=== PATIENT | female | born 1995 | race Caucasian/White ===

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

== ENCOUNTER 2017-01-14 22:31 | Emergency (ER) | payer OTHER ==
--- OUTSIDE RECORDS SUMMARY | 2017-01-14 22:47 | XMS REPORT ---
:1995 External Reference #:[id number] Author Organization [facility] Address [address] [place] [address] Phone [phone] Care Team Providers Name Role Phone DEMARIO Subramanian Care Team Information Glove Turner Unavailable Payers Type Date Identification Numbers Payment Provider Subscriber Commercial Effective: Policy Number: [id number] [place]([facility] Dejah Caal 2013 [facility]) Naun Expires: 2014 Group Name: [employer] [address] PayID: [id number] [place] [address] Commercial Effective: Policy Number: Will Caal 2012 [id number] Medicaid Naun Expires: 2016 PayID: [id number] [address] [place] [address] Commercial Effective: [facility] Number[facility] [id number] Naun Expires: 2016 PayID: [id number] [address] [place] [address] Commercial Effective: Policy Number: Will Caal 2016 [id number] Medicaid Naun PayID: [id number] [address] [place] [address] Problems Description No Information Social History Type Date Description Comments Lives With Boyfriend Diet Healthy, Well Balanced likes fruits, needs to eat more vegetables Smoke-Free home is not smoke free Pets 2 dogs Pets 2 cats Cigarette Use Light tobacco smoker (10 or fewer cigarettes/day) ETOH Use Denies alcohol use Recreational Drug Use Denies Drug Use Smoking Patient is a current smoker, smokes every day Daily Caffeine Does Not Consume Caffeine Currently Active Patient is currently sexually active Allergies, Adverse Reactions, Alerts Date Description Reaction Status Severity Comments 04/18/2008 NKDA active Medications Medication Date Status Form Strength Qnty SIG Indications Ordering Provider Ortho-Novum 05/25 Active Tablets 1-35mg-mc 168ta 1 by mouth N92.0 wnti (28) /2016 g bs daily, can Corine Bravo, skip placebo CLINICAL OPERATIONS CONSULTANT-C week and start new pill pack Omeprazole 03/[address] 20mg 30cap 1 by mouth K29.00 s every day Corine Bravo, CLINICAL OPERATIONS CONSULTANT-C Cefdinir 06/17 Hx Capsules 300mg 20cap 1 by mouth J02.0 s twice a day Corine Bravo, - for 10 days CLINICAL OPERATIONS CONSULTANT-C 01/02 04/07 Hx Tablets 27-1mg 90tab 1 by mouth Z33.1 s every day Corine Bravo, - CLINICAL OPERATIONS CONSULTANT-C 05/25 Cipro 03/10 Hx Tablets 250mg 10tab 1 pill by N10 s mouth twice a Corine Bravo, - day for 5 CLINICAL OPERATIONS CONSULTANT-C 03/20 days urine infection Bactrim DS 02/08 Hx Tablets 800-160mg 28tab 1 by mouth Yris s twice a day ravindra Zuñiga, - 14 days CLINICAL OPERATIONS CONSULTANT-C 04/07 Sulfamethoxazo 04/20 Hx Tablets 800-160mg 20tab 1 by mouth N76.4 [facility]Trimethop[facility] twice a day antoine Marr DS - for CLINICAL OPERATIONS CONSULTANT-C 04/30 infection, take for 10 days Meloxicam 03/17 Hx Tablets 7.5mg 30tab take one M54.5 s tablet by Corine Bravo, - mouth twice CLINICAL OPERATIONS CONSULTANT-C 11/11 daily for pain Mirtazapine 03/17 Hx Tablets 15mg 30tab take one F41.9 s tablet by Corine Bravo, - mouth every CLINICAL OPERATIONS CONSULTANT-C 04/13 night at bedtime for depression and anxiety, replaced Nortriptyline Nortriptyline 02/24 Hx Capsules 25mg 30cap 1 by mouth F41.9 Shawnti HCL s every night Corine Bravo, - at bedtime CLINICAL OPERATIONS CONSULTANT-C 04/13 for anxiety /2015 and depression Prozac 02/17 Hx Capsules 20mg 30cap 1 by mouth F41.9 Shawnti /2015 s every morning Corine Bravo, - CLINICAL OPERATIONS CONSULTANT-C 02/24 Doxycycline 02/17 Hx Tablets 100mg 20tab 1 by mouth N76.4 [place] Hyclate s twice a day Corine Bravo, - for 10 days CLINICAL OPERATIONS CONSULTANT-C 02/27 Bactrim DS 02/02 Hx Tablets 800-160mg 20tab 1 by mouth N76.4 Shawnti /2014 s twice a day Corine Bravo, - for infection CLINICAL OPERATIONS CONSULTANT-C 02/12 Hydrocodone-Ac 02/02 Hx Tablets 5-325mg 10tab 1 by mouth N76.4 Shawn[place] etaminophen s four times a R. Lawrence, - day as needed CLINICAL OPERATIONS CONSULTANT-C 02/12 severe pain /2014 Hydrocodone-Ac 12/19 Hx Tablets 5-325mg 14tab 1 by mouth L02.214 [place] etaminophen s four times a R. Lawrence, - day as needed CLINICAL OPERATIONS CONSULTANT-C 02/02 severe pain /2014 Etodolac 12/19 Hx Capsules 300mg 30cap 1 by mouth L02.214 Shawnti /2014 s q6hr for pain R. Lawrence, - CLINICAL OPERATIONS CONSULTANT-C 03/17 Ortho-Novum 12/11 Hx Tablets 1-35mg-mc 168ta 1 po daily N92.0 [facility] ([facility] /2014 g bs for heavy R. Storm, - menses CLINICAL OPERATIONS CONSULTANT-C 04/07 Hydrocodone-Ac 09/30 Hx Tablets 5-325mg 7seve 1 by mouth q 590.80 Yris etaminophen n 6 hours as Adri, - needed for CLINICAL OPERATIONS CONSULTANT-C 12/19 severe pain /2014 Tri-Sprintec 12/30 Hx Tablets 0.18/0.21 84tab 1 by mouth N92.0 nti 5/0.25 s every day Corine Bravo, - mg-35 mcg CLINICAL OPERATIONS CONSULTANT-C 12/11 Polymyxin B 01/20 Hx Solution 50939-7.1 10ml 1gtt in right 379.90 Yris Sulfate/Trimet Unit/ML-% eyes every 4 chey Zuñiga Sulfate - hours while CLINICAL OPERATIONS CONSULTANT-C 09/24 awake no more /2014 than 6 doses/day, replaces script that says both eyes Camrese Lo 12/06 Hx Tablets 0.1-0.02& 30tab 1 po daily V25.09 Shawnti amp;0.01m s Corine Bravo, - g CLINICAL OPERATIONS CONSULTANT-C 02/11 Celexa 12/06 Hx Tablets 10mg 30tab 1 by mouth 308.3 wnti s every day Corine Bravo, - CLINICAL OPERATIONS CONSULTANT-C 12/06 Citalopram 12/06 Hx Tablets 10mg 90tab 1 by mouth 308.3 Shawnti Hydrobromide s daily for Corine Bravo, - anxiety CLINICAL OPERATIONS CONSULTANT-C 09/24 No Active 03/27 Hx Shawnti Medications Corine Bravo, - CLINICAL OPERATIONS CONSULTANT-C 03/27 Jolessa 03/27 Hx Tablets 0.15-0.03 28tab 1 by mouth 626.2 mg s every day Corine Bravo, - CLINICAL OPERATIONS CONSULTANT-C 12/06 Ciprodex 09/19 Hx Suspension 0.3-0.1% 7.500 4 ggts in ear 380.10 ml bid x 7 days Elle Kee M.D. 12/18 Amoxicillin 09/19 Hx Capsules 500mg 30cap 1 tid x 10 380.10 s days Elle Kee M.D. 10/19 Immunizations CPT Code Status Date Vaccine Lot # [id number] Given 11/12/2015 Menactra VFC (Meningicoccal Conjugate Vaccine) [id number] 44580 Given 11/12/2015 Influenza Virus Vaccine, Quadrivalent, 3 Yr > [id number] Quad, Preserv Free 89087 Given 11/01/2013 Varicella (Chicken Pox) Vacc [facility] [id number] 65898 Given 11/01/2013 Hepatitis A(Ped) 2 Dose Schedule [id number] 72165 Given 10/01/2012 HPV Vaccine, Gardasil - [facility] [id number] 32512 Given 05/25/2012 HPV Vaccine, Gardasil - [facility] [id number] 60276 Given 03/27/2012 Menactra VF (Meningicoccal Conjugate Vaccine) [id number] 93953 Given 03/27/2012 Tdap [facility] (Adacel) [id number] 10893 Given 03/27/2012 HPV Vaccine, Gardasil - [facility] [id number] 50756 Given 03/27/2012 Hepatitis A(Ped) 2 Dose Schedule [id number] 35941 Given 01/14/2009 Tdap [facility] (Adacel) [id number] 54451 Given 10/10/2002 MMR (Measles,Mumps,Rubella) 78506 Given 10/10/2002 DTaP (Daptacel) 94432 Given 05/07/2001 Varicella (Chicken Pox) Vaccine 94640 Given 11/26/1998 Hib (Hemophilus Influenza B) (Acthib) 07697 Given 11/26/1998 DTaP (Daptacel) 43941 Given 11/26/1998 MMR (Measles,Mumps,Rubella) 54424 Given 11/26/1998 Inactivated Polio Vaccine, Injectable (Ipol) 94434 Given 11/26/1998 DPT & Hib Vaccine, Combined 75859 Given 11/01/1998 Comvax - Hep B Pediatric/Hib 44626 Given 04/03/1998 DTaP (Daptacel) 51203 Given 1997 Inactivated Polio Vaccine, Injectable (Ipol) 09677 Given 1997 DTaP (Daptacel) 11074 Given 1997 Hib (Hemophilus Influenza B) (Acthib) 32348 Given 1997 Comvax - Hep B Pediatric/Hib 31379 Given 1997 Inactivated Polio Vaccine, Injectable (Ipol) 30906 Given 1997 DTaP (Daptacel) 89458 Given 1997 Hep B Vaccine, Ped/Adol Dose 3 Dose (Engerix or Recombivax) Vital Signs Date Vital Result Comment 01/02/2017 Weight 147.00 lb Weight in kg's 66.679 BP Systolic 120 mmHg BP Diastolic 72 mmHg Heart Rate 90 /min Body Temperature 98.0 F Weight Percentile 78th O2 % BldC Oximetry 97 % 10/04/2016 Weight 155.00 lb Weight in kg's 70.308 BP Systolic 110 mmHg BP Diastolic 70 mmHg Heart Rate 86 /min Body Temperature 98.7 F Respiratory Rate 26 /min Weight Percentile <3rd O2 % BldC Oximetry 98 % 06/17/2016 Weight 168.00 lb Weight in kg's 76.205 BP Systolic 102 mmHg BP Diastolic 68 mmHg Heart Rate 96 /min Body Temperature 98.7 F Weight Percentile 92nd 05/26/2016 Weight 162.00 lb Weight in kg's 73.483 BP Systolic 110 mmHg BP Diastolic 70 mmHg Heart Rate 92 /min Body Temperature 97.5 F Respiratory Rate 16 /min Weight Percentile 90th 04/07/2016 Weight 168.00 lb Weight in kg's 76.205 BP Systolic 108 mmHg BP Diastolic 66 mmHg Heart Rate 104 /min Body Temperature 97.0 F Respiratory Rate 16 /min Weight Percentile 92nd Last Menstrual Period 5493364 O2 % BldC Oximetry 98 % 03/31/2016 Weight 170.00 lb Weight in kg's 77.112 BP Systolic 100 mmHg BP Diastolic 70 mmHg Heart Rate 105 /min Body Temperature 98.2 F Respiratory Rate 14 /min Weight Percentile 93rd O2 % BldC Oximetry 98 % 03/10/2016 Weight 166.00 lb Weight in kg's 75.298 BP Systolic 90 mmHg BP Diastolic 70 mmHg Heart Rate 124 /min Body Temperature 98.0 F Respiratory Rate 16 /min Weight Percentile 91st Last Menstrual Period [id number] 02/09/2016 Weight 163.00 lb Weight in kg's 73.937 BP Systolic 100 mmHg BP Diastolic 70 mmHg Heart Rate 80 /min Body Temperature 98.7 F Respiratory Rate 12 /min Weight Percentile 90th 11/12/2015 Weight 160.00 lb Weight in kg's 72.576 BP Systolic 110 mmHg BP Diastolic 60 mmHg Heart Rate 104 /min Body Temperature 98.0 F Respiratory Rate 12 /min Height 68 inches 5'8" Height Percentile 93 % Weight Percentile 89th BMI (Body Mass Index) 24.3 kg/m2 Body Mass Index Percentile 78 % Right Visual Acuity Distance 20/40 Left Visual Acuity Distance 20/40 Both Visual Acuity Distance 20/40 11/09/2015 Weight 166.00 lb Weight in kg's 75.298 BP Systolic 100 mmHg BP Diastolic 60 mmHg Heart Rate 88 /min Body Temperature 98.0 F Respiratory Rate 12 /min Weight Percentile 04/21/2015 Weight 164.00 lb Weight in kg's 74.390 BP Systolic 90 mmHg BP Diastolic 70 mmHg Heart Rate 88 /min Weight Percentile 04/14/2015 Weight 164.00 lb Weight in kg's 74.390 BP Systolic 110 mmHg BP Diastolic 80 mmHg Heart Rate 82 /min Weight Percentile 03/17/2015 Weight 160.00 lb Weight in kg's 72.576 BP Systolic 106 mmHg BP Diastolic 72 mmHg Heart Rate 72 /min Weight Percentile 9002/24/2015 Weight 158.00 lb Weight in kg's 71.669 BP Systolic 114 mmHg BP Diastolic 66 mmHg Heart Rate 84 /min Body Temperature 99.3 F Weight Percentile 02/17/2015 Weight 161.00 lb Weight in kg's 73.030 BP Systolic 110 mmHg BP Diastolic 60 mmHg Heart Rate 88 /min Body Temperature 98.8 F Weight Percentile 02/02/2015 Weight 162.00 lb Weight in kg's 73.483 BP Systolic 120 mmHg BP Diastolic 78 mmHg Heart Rate 80 /min Weight Percentile 12/19/2014 Weight 159.00 lb Weight in kg's 72.122 BP Systolic 110 mmHg BP Diastolic 56 mmHg Heart Rate 116 /min Body Temperature 98.9 F Weight Percentile 12/11/2014 Weight 159.00 lb Weight in kg's 72.122 BP Systolic 112 mmHg BP Diastolic 74 mmHg Heart Rate 88 /min Weight Percentile 10/14/2014 Weight 161.00 lb Weight in kg's 73.030 BP Systolic 112 mmHg BP Diastolic 64 mmHg Heart Rate 96 /min Body Temperature 98.4 F Weight Percentile 09/30/2014 Weight 162.00 lb Weight in kg's 73.483 BP Systolic 110 mmHg BP Diastolic 80 mmHg Heart Rate 84 /min Body Temperature 98.3 F Weight Percentile 09/24/2014 Weight 161.00 lb Weight in kg's 73.030 BP Systolic 98 mmHg BP Diastolic 62 mmHg Heart Rate 100 /min Body Temperature 97.5 F Weight Percentile O2 % BldC Oximetry 98 % 03/20/2014 Weight 161.00 lb Weight in kg's 73.030 BP Systolic 90 mmHg BP Diastolic 60 mmHg Heart Rate 85 /min Body Temperature 98.6 F Weight Percentile 92nd O2 % BldC Oximetry 98 % 02/11/2014 Weight 166.00 lb Weight in kg's 75.298 BP Systolic 100 mmHg BP Diastolic 70 mmHg Heart Rate 96 /min Body Temperature 98.9 F Weight Percentile 93rd 01/20/2014 Weight 165.00 lb Weight in kg's 74.844 BP Systolic 90 mmHg BP Diastolic 70 mmHg Heart Rate 72 /min Weight Percentile 9312/30/2013 Weight 167.00 lb Weight in kg's 75.751 BP Systolic 110 mmHg BP Diastolic 70 mmHg Heart Rate 88 /min Weight Percentile 9412/06/2013 Weight 168.00 lb Weight in kg's 76.205 BP Systolic 94 mmHg BP Diastolic 60 mmHg Heart Rate 100 /min Weight Percentile 9411/01/2013 Weight 163.00 lb Weight in kg's 73.937 BP Systolic 106 mmHg BP Diastolic 54 mmHg Heart Rate 92 /min Height 68.5 inches 5'8.50" Height Percentile 96 % Weight Percentile 93rd BMI (Body Mass Index) 24.4 kg/m2 Body Mass Index Percentile 83 % Right Visual Acuity Distance 20/30 Left Visual Acuity Distance 20/40 Both Visual Acuity Distance 20/30 10/16/2012 Weight 160.00 lb Weight in kg's 72.576 BP Systolic 100 mmHg BP Diastolic 70 mmHg Heart Rate 84 /min Body Temperature 98.0 F Weight Percentile 92nd 03/27/2012 Weight 156.00 lb Weight in kg's 70.762 BP Systolic 112 mmHg BP Diastolic 66 mmHg Heart Rate 100 /min Height 67.5 inches 5'7.50" Height Percentile 93 % Weight Percentile 92nd BMI (Body Mass Index) 24.1 kg/m2 Body Mass Index Percentile 86 % Right Visual Acuity Distance 20/25 Left Visual Acuity Distance 20/20 Both Visual Acuity Distance 20/20 09/19/2009 Weight 108.00 lb Weight in kg's 48.989 BP Systolic 112 mmHg BP Diastolic 70 mmHg Heart Rate 100 /min Body Temperature 99.3 F Weight Percentile 74th 04/18/2008 Weight 77.00 lb Weight in kg's 34.927 BP Systolic 110 mmHg BP Diastolic 60 mmHg Heart Rate 74 /min Body Temperature 99.0 F Height 57.75 inches 4'9.75" Height Percentile 71 % Weight Percentile 43rd BMI (Body Mass Index) 16.2 kg/m2 Body Mass Index Percentile 32 % Results Test Date Test Result H/L Range Note Laboratory test 01/02/2017 Urine Culture And SEE RESULT 1 finding Sensitivities BELOW CBC Auto Diff 01/02/2017 White Blood Count 5.3 10^3/uL 3.5-10.8 Red Blood Count 4.83 10^6/uL 4.0-5.4 Hemoglobin 13.8 g/dL 12.0-16.0 Hematocrit 42 % 35-47 Mean Corpuscular Volume 88 fL 80-97 Mean Corpuscular Hemoglobin 29 pg 27-31 Mean Corpuscular HGB Conc 33 g/dL 31-36 Red Cell Distribution Width 14 % 10.5-15 Platelet Count 350 10^3/uL 150-450 Mean Platelet Volume 9 um3 7.4-10.4 Abs Neutrophils 2.6 10^3/uL 1.5-7.7 Abs Lymphocytes 2.1 10^3/uL 1.0-4.8 Abs Monocytes 0.4 10^3/uL 0-0.8 Abs Eosinophils 0.1 10^3/uL 0-0.6 Abs Basophils 0 10^3/uL 0-0.2 Abs Nucleated RBC 0 10^3/uL Granulocyte % 49.9 % 38-83 Lymphocyte % 40.5 % 25-47 Monocyte % 7.8 % 1-9 Eosinophil % 1.3 % 0-6 Basophil % 0.5 % 0-2 Nucleated Red Blood Cells % 0.1 Comp Metabolic Panel 01/02/2017 Sodium 138 mmol/L 133-145 Potassium 4.1 mmol/L 3.5-5.0 Chloride 104 mmol/L 101-111 Co2 Carbon Dioxide 28 mmol/L 22-32 Anion Gap 6 mmol/L 2-11 Glucose 86 mg/dL 70-100 Blood Urea Nitrogen 15 mg/dL 6-24 Creatinine 0.81 mg/dL 0.51-0.95 BUN/Creatinine Ratio 18.5 8-20 Calcium 9.8 mg/dL 8.6-10.3 Total Protein 7.3 g/dL 6.4-8.9 Albumin 4.5 g/dL 3.2-5.2 Globulin 2.8 g/dL 2-4 Albumin/Globulin Ratio 1.6 1-3 Total Bilirubin 1.10 mg/dL High 0.2-1.0 Alkaline Phosphatase 55 U/L 34-104 Alt 12 U/L 7-52 Ast 15 U/L 13-39 Egfr Non- 91.1 >60 Egfr 117.1 >60 2 Laboratory test finding 01/02/2017 Hemoglobin A1c (Glyco HGB) 4.8 % 4.0- 5.6 3 Amylase 58 U/L 29-103 4 Lipase 19 U/L 11.0-82.0 5 TSH (Thyroid Stim Horm) 0.58 mcIU/mL 0.34-5.60 6 Bilrubin And Indirect 01/02/2017 Direct Bilirubin 0.20 mg/dL High 0.03- 0.18 Indirect Bilirubin 0.9 mg/dL 0.3-1.0 Laboratory test finding 01/02/2017 Phosphorus 3.4 mg/dL 2.5-5.0 7 Laboratory test finding 01/02/2017 HCG DIP Test neg Neg Urine DIP 01/02/2017 Leukocytes + Neg Urine Nitrites neg Neg Urobilinogen 1 High Norm Total Protein, Urine trace Neg Urine pH 5 5-6 Urine Blood trace Neg Specific [place] 1.025 High 1.01-1.02 Urine Ketones 2+ High Neg Urine Bilirubin 1+ High Neg Urine Glucose 50 High Norm Urine DIP 10/04/2016 Leukocytes TRACE Neg Urine Nitrites NEG Neg Urobilinogen NORM Norm Total Protein, Urine NEG Neg Urine pH 8 High 5-6 Urine Blood NEG Neg Specific [place] 1.015 1.01-1.02 Urine Ketones NEG Neg Urine Bilirubin NEG Neg Urine Glucose 100 High Norm Laboratory test 06/17/2016 Culture Throat SEE RESULT BELOW 8 finding Laboratory test 06/17/2016 Strep Screen neg Neg finding Laboratory test 04/07/2016 HCG DIP Test POS Neg finding Laboratory test 03/10/2016 Urine Culture And SEE RESULT BELOW 9 finding Sensitivities CBC Auto Diff 03/10/2016 White Blood Count 6.7 10^3/uL 3.5-10.8 Red Blood Count 4.94 10^6/uL 4.0-5.4 Hemoglobin 13.8 g/dL 12.0-16.0 Hematocrit 42 % 35-47 Mean Corpuscular Volume 85 fL 80-97 Mean Corpuscular Hemoglobin 28 pg 27-31 Mean Corpuscular HGB Conc 33 g/dL 31-36 Red Cell Distribution Width 14 % 10.5-15 Platelet Count 283 10^3/uL 150-450 Mean Platelet Volume 8 um3 7.4-10.4 Abs Neutrophils 3.6 10^3/uL 1.5-7.7 Abs Lymphocytes 2.4 10^3/uL 1.0-4.8 Abs Monocytes 0.5 10^3/uL 0-0.8 Abs Eosinophils 0.1 10^3/uL 0-0.6 Abs Basophils 0 10^3/uL 0-0.2 Abs Nucleated RBC 0.01 10^3/uL Granulocyte % 54.4 % 38-83 Lymphocyte % 36.3 % 25-47 Monocyte % 7.5 % 1-9 Eosinophil % 1.5 % 0-6 Basophil % 0.3 % 0-2 Nucleated Red Blood Cells % 0.1 Urine DIP 03/10/2016 Leukocytes ++ Neg Urine Nitrites pos Neg Urobilinogen norm Norm Total Protein, Urine 100+ High Neg Urine pH 6 5-6 Urine Blood 100 High Neg Specific [place] 1.025 High 1.01-1.02 Urine Ketones neg Neg Urine Bilirubin neg Neg Urine Glucose 250 High Norm Lipid Profile (Trig/Chol/HDL) 03/10/2016 Triglycerides 137 mg/dL 10 Cholesterol 166 mg/dL 11 HDL Cholesterol 58.4 mg/dL 12 LDL Cholesterol 80 mg/dL 13 Laboratory test finding 03/10/2016 Hemoglobin A1c (Glyco 4.8 % Less than 6.0 14 HGB) Insulin Level 64.7 mcIU/mL 2.6 - 24.9 15 TSH (Thyroid Stim Horm) 0.56 mcIU/mL 0.34-5.60 16 Comp Metabolic Panel 03/10/2016 Sodium 138 mmol/L 133-145 Potassium 4.3 mmol/L 3.5-5.0 Chloride 105 mmol/L 101-111 Co2 Carbon Dioxide 28 mmol/L 22-32 Anion Gap 5 mmol/L 2-11 Glucose 101 mg/dL High 70-100 Blood Urea Nitrogen 19 mg/dL 6-24 Creatinine 0.75 mg/dL 0.51-0.95 BUN/Creatinine Ratio 25.3 High 8-20 Calcium 9.4 mg/dL 8.6-10.3 Total Protein 7.0 g/dL 6.4-8.9 Albumin 4.4 g/dL 3.2-5.2 Globulin 2.6 g/dL 2-4 Albumin/Globulin Ratio 1.7 1-3 Total Bilirubin 0.40 mg/dL 0.2-1.0 Alkaline Phosphatase 67 U/L 34-104 Alt 12 U/L 7-52 Ast 13 U/L 13-39 Egfr Non- 100.6 >60 Egfr 129.4 >60 17 Urine DIP 02/23/2016 Leukocytes neg Neg Urine Nitrites neg Neg Urobilinogen neg Norm Total Protein, Urine neg Neg Urine pH 7 High 5-6 Urine Blood 250 High Neg Specific [place] 1.020 1.01-1.02 Urine Ketones neg Neg Urine Bilirubin neg Neg Urine Glucose 50 High Norm Laboratory test 02/23/2016 Urine Culture SEE RESULT BELOW 18, 19 finding Laboratory test 02/09/2016 HCG DIP Test neg Neg finding Laboratory test 02/09/2016 Urine Culture And SEE RESULT BELOW 20 finding Sensitivities GC/Chlamydia 02/09/2016 Chlamydia trachomatis Negative Negative Amplified Rna Rna Neisseria gonorrhoeae (GC) Rna Negative Negative Urine DIP 02/09/2016 Leukocytes ++ Neg Urine Nitrites POS Neg Urobilinogen NORM Norm Total Protein, Urine ++ Neg Urine pH 8 High 5-6 Urine Blood ++++ Neg Specific [place] 1.010 1.01-1.02 Urine Ketones NEG Neg Urine Bilirubin NEG Neg Urine Glucose NORM Norm Laboratory test finding 04/19/2015 Wound/Misc Culture-Gram SEE RESULT BELOW 21 Stain MRSA/S. aureus Ssti PCR SEE RESULT BELOW 22 Laboratory test 12/17/2014 Wound/Misc SEE RESULT BELOW 23 finding Culture-Gram Stain GC/Chlamydia 12/11/2014 Chlamydia trachomatis Negative Negative Amplified Rna Rna Neisseria gonorrhoeae (GC) Rna Negative Negative 24 Syphilis Screen 12/11/2014 Pediatric/Maternal NO Syphilis IgG Nonreactive Nonreactive 25 RPR TNP Nonreactive RPR Titer TNP HIV 1/2 AB Evaluation 12/11/2014 HIV 1 2 Antibody Nonreactive Nonreactive 26 Urine DIP 09/30/2014 Specific [place] 1.015 1.01-1.02 Urine pH 7 High 5-6 Leukocytes trace Neg Urine Nitrites neg Neg Total Protein, Urine neg Neg Urine Glucose 250 High Norm Urine Ketones neg Neg Urobilinogen norm Norm Urine Bilirubin neg Neg Urine Blood trace Neg Laboratory test finding 09/24/2014 Glucose 78 Urine DIP 09/24/2014 Specific [place] 1.010 1.01-1.02 Urine pH 7 High 5-6 Leukocytes POS Neg Urine Nitrites NEG Neg Total Protein, Urine TRACE Neg Urine Glucose 1000 High Norm Urine Ketones NEG Neg Urobilinogen NORM Norm Urine Bilirubin NEG Neg Urine Blood about 50 Neg Laboratory test finding 09/24/2014 HCG DIP Test NEG Neg Laboratory test finding 09/24/2014 Glucose By Moniter 78 78-110 Laboratory test finding 09/24/2014 Troponin I 0.00 ng/mL <0.03 27 Lipase 17 U/L 11.0-82.0 Comp Metabolic Panel 09/24/2014 Sodium 134 mmol/L 133-145 Potassium 4.1 mmol/L 3.5-5.0 Chloride 101 mmol/L 101-111 Co2 Carbon Dioxide 26 mmol/L 22-32 Anion Gap 7 mmol/L 2-11 Glucose 89 mg/dL 70-100 Blood Urea Nitrogen 9 mg/dL 6-24 Creatinine 0.64 mg/dL 0.51-0.95 BUN/Creatinine Ratio 14.1 8-20 Calcium 9.4 mg/dL 8.6-10.3 Total Protein 7.6 g/dL 6.4-8.9 Albumin 3.9 g/dL 3.2-5.2 Globulin 3.7 g/dL 2-4 Albumin/Globulin Ratio 1.1 1-3 Total Bilirubin 0.30 mg/dL 0.2-1.0 Alkaline Phosphatase 67 U/L 34-104 Alt 12 U/L 7-52 Ast 12 U/L Low 13-39 Laboratory test finding 09/24/2014 Monospot Negative Negative Serum HCG Qualitative Negative Negative CBC Auto Diff 09/24/2014 White Blood Count 9.5 10^3/uL 4.8-10.8 Red Blood Count 4.50 10^6/uL 4.0-5.4 Hemoglobin 12.8 g/dL 12.0-16.0 Hematocrit 39 % 35-47 Mean Corpuscular Volume 87 fL 80-97 Mean Corpuscular Hemoglobin 28 pg 27-31 Mean Corpuscular HGB Conc 33 g/dL 31-36 Red Cell Distribution Width 14 % 10.5-15 Platelet Count 308 10^3/uL 150-450 Mean Platelet Volume 8 um3 7.4-10.4 Abs Neutrophils 6.2 10^3/uL 1.5-7.7 Abs Lymphocytes 2.2 10^3/uL 1.0-4.8 Abs Monocytes 1.0 10^3/uL High 0-0.8 Abs Eosinophils 0.1 10^3/uL 0-0.6 Abs Basophils 0 10^3/uL 0-0.2 Abs Nucleated RBC 0.01 10^3/uL Granulocyte % 65.0 % 38-83 Lymphocyte % 23.0 % Low 25-47 Monocyte % 10.1 % High 1-9 Eosinophil % 1.6 % 0-6 Basophil % 0.3 % 0-2 Nucleated Red Blood Cells % 0.1 Laboratory test 09/24/2014 D Dimer Quantitative 260 ng/mL High Less Than 28 finding 230 Laboratory test 09/24/2014 Urine Culture SEE RESULT 29 finding BELOW Urinalysis Profile 09/24/2014 Urine Color Era Urine Appearance Turbid Urine Specific [place] 1.020 1.010-1.030 Urine pH 5.0 5-9 Urine Urobilinogen Negative Negative Urine Ketones Trace Negative Urine Protein 1+(30 mg/dL) Negative Urine Leukocytes 2+ Negative Urine Blood 2+ Negative Urine Nitrite Negative Negative Urine Bilirubin Negative Negative Urine Glucose Negative Negative Urine White Blood Cell 3+(>20/hpf) Absent Urine Red Blood Cell 3+(>10/hpf) Absent Urine Bacteria 2+ Absent Urine Squamous Epithelial Cell Present Absent Urine Transitional Epithelial Present Absent CMP Stat 12/05/2008 Sodium 142 mmol/L 135-145 Potassium 2.9 mmol/L Low 3.6-5.2 Chloride 103 mmol/L 101-111 Co2 (Carbon Dioxide) 26.0 mmol/L 22-32 Anion Gap 13.0 mmol/L High 2-11 30 Glucose 125 mg/dL High 70-100 31 BUN 12 mg/dL 6-24 Creatinine 0.50 mg/dL 0.50-1.40 One Over Creatinine 2.00 BUN/Creatinine Ratio 24.0 High 8-20 Calcium 9.6 mg/dL 8.1-9.9 32 Total Protein 6.6 GM/DL 6.2-8.1 Albumin 4.1 GM/DL 3.6-5.4 Globulin 2.5 GM/DL 2-4 Albumin/Globulin Ratio 1.6 1-3 Bilirubin Total 0.6 mg/dL 0.4-1.5 33 Alkaline Phosphatase 299 U/L 130-390 Alt (SGPT) 20 U/L 14-54 Ast (Sgot) 24 U/L 12-42 Laboratory test finding 12/05/2008 Amylase 190 U/L High 30-125 C Reactive Protein < 0.5 mg/dL Less Than 0.5 CBC With Electronic Diff Stat 12/05/2008 White Blood Count 14.2 CUMM 5.0- 17.0 Red Cell Count 5.08 CUMM 3.9-5.3 Hemoglobin 14.2 g/dL High 11.5-14.0 Hematocrit 42 % High 34-40 Mean Corpuscular Volume 83 um3 76-87 Mean Corpuscular Hemoglob 28 pg 24-30 Mean Corpuscular HGB Cone 34 g/dL 30-36 Redcell Distribution WDTH 13 % 10.5-15 Platelet Count 403 CUMM 150-450 Mean Platelet Volume 7.5 um3 7.4-10.4 Gran % 76.6 % 38-83 Lymph % 16.0 % Low 25-47 Mononuclear % 5.6 % 1-9 Eosinophil % 1.7 % 0-6 Basophil % 0.1 % 0-2 Abs Lymphs 2.3 2.0-8.0 Abs Mononuclear 0.8 0-0.8 Absolute Neutrophil Count 10.9 High 1.5-8.5 Abs Eosinophils 0.2 0-0.6 Abs Basophils 0 0-0.2 Erythrocyte Sed Rate Stat 12/05/2008 Erythrocyte Sed Rate 1 MM/HR 0-20 Laboratory test finding 04/18/2008 Strep Screen neg Neg 1 SEE RESULT BELOW Name: ABRAHAM MAGALLONTANTatiana Caal : [address]: Emily Kenney NP Acct: [id number] Unit: [id number] AGE: 21 Location: [facility] Re01/02/17 SEX: F Status: REG REF SPEC: [id number] AVTAR: 01/02/17-[address] [facility] [address]: Emily Kenney NP REQ: [id number] RECD: 01/02/17 STATUS: COMP _ SOURCE: URINE [facility]: ORDERED: Urine Culture COMMENTS: [id number] Urine Source: Random Procedure Result Reported Site Urine Culture Final 01/03/17- 1307 ML Mixed juhi; possible contamination. Suggest resubmission. * ML - MAIN LAB ([facility]) . END OF REPORT * ML=Testing performed at Main Lab DEPARTMENT OF PATHOLOGY, [address] [place] [address] Quinn Castanon M.D. Director [facility] # [id number] 2 Because ethnic data is not always readily available, this report includes an eGFR for both -Americans and non- Americans. The National Kidney Disease Education Program (NKDEP) does not endorse the use of the MDRD equation for patients that are not between the ages of 18 and 70, are , have extremes of body size, muscle mass, or nutritional status, or are non- or non-. According to the National Kidney Foundation, irrespective of diagnosis, the stage of the disease is based on the level of kidney function: Stage Description GFR(mL/min/1.73 m(2)) 1 Kidney damage with normal or decreased GFR 90 2 Kidney damage with mild decrease in GFR 60-89 3 Moderate decrease in GFR 30-59 4 Severe decrease in GFR 15-29 5 Kidney failure <15 (or dialysis) 3 Therapeutic target for the treatment of diabetes mellitus patients is <7% HBA1C, and in selective patients <6.0%. Please refer to [employer] diabetic care guidelines for further information. 4 [id number] 5 [id number] 6 [id number] 7 [id number] 8 SEE RESULT BELOW Name: DEJAH MAGALLON : [address]: Mona Bravo NP Acct: [id number] Unit: [id number] AGE: 20 Location: [facility] Re06/17/16 SEX: F Status: REG REF SPEC: [id number] AVTAR: 06/17/16-[address]: Mona Bravo NP REQ: [id number] RECD: 06/17/16 STATUS: COMP _ SOURCE: THROAT SPDESC: ORDERED: Throat Culture COMMENTS: [id number] Procedure Result Reported Site Throat Culture Final 06/20/16- 1710 ML Organism 1 HAEMOPHILUS INFLUENZAE Quantity 2+ Beta Lactamase Negative Organism 2 NORMAL JUHI Quantity 1+ Throat cultures are clinically indicated to detect the presence of group A strep, arcanobacterium and yeast. In certain cases, predominating organisms will be reported. * ML - MAIN LAB ([facility]) . END OF REPORT * ML=Testing performed at Main Lab DEPARTMENT OF PATHOLOGY, [address] [place] [address] Quinn Castanon M.D. Director [facility] # [id number] 9 SEE RESULT BELOW Name: DEJAH MAGALLON : [address]: Mona Bravo NP Acct: [id number] Unit: [id number] AGE: 20 Location: [facility] Re03/10/16 SEX: F Status: REG REF SPEC: [id number] AVATR: 03/10/[address]: Mona Bravo NP REQ: [id number] RECD: 03/10/16 STATUS: COMP _ SOURCE: URINE SPDC: ORDERED: Urine Culture COMMENTS: [id number] Urine Source: Random Procedure Result Reported Site Urine Culture Final 03/12/16- 737 ML Organism 1 ESCHERICHIA COLI [place] Count >100,000 (Many) CFU/ML 1. ESCHERICHIA COLI M.I.C. RX --------- ------ Ampicillin <=2 S Cefazolin <=4 S Cefepime <=1 S Ceftriaxone <=1 S Ciprofloxacin <=0.25 S Gentamicin <=1 S Levofloxacin <=0.12 S Meropenem <=0.25 S Nitrofurantoin <=16 S Tetracycline >=16 R Pipercillin/Tazobactam <=4 S Trimethoprim/Sulfamethoxazole >=320 R Amoxicillin/Clavulanic Acid <=2 S Aztreonam <=1 S Contact the Microbiology Department for any additional antibiotic reporting. * ML - MAIN LAB ([facility]) . END OF REPORT * ML=Testing performed at Main Lab DEPARTMENT OF PATHOLOGY, [address] [place] [address] Quinn Castanon M.D. Director [facility] # [id number] 10 Desirable <150 Borderline high 150-199 High 200-499 Very High >500 11 Desirable <200 Borderline high 200-239 High >239 12 Low <40 Desirable: 40-60 High: >60 13 Desirable: <100 mg/dL Near Optimal: 100-129 mg/dL Borderline High: 130-159 mg/dL High: 160-189 mg/dL Very High: >189 mg/dL 14 Therapeutic target for the treatment of diabetes Mellitus patients is <7% HBA1C, and in selective patients <6.0%.Please refer to [employer] Diabetic care guidelines for further information. 15 Test Performed by: [place] [address] Professional Nurse: Jey Wilson II, M.D., Ph.D. 16 [id number] 17 Because ethnic data is not always readily available, this report includes an eGFR for both -Americans and non- Americans. The National Kidney Disease Education Program (NKDEP) does not endorse the use of the MDRD equation for patients that are not between the ages of 18 and 70, are , have extremes of body size, muscle mass, or nutritional status, or are non- or non-. According to the National Kidney Foundation, irrespective of diagnosis, the stage of the disease is based on the level of kidney function: Stage Description GFR(mL/min/1.73 m(2)) 1 Kidney damage with normal or decreased GFR 90 2 Kidney damage with mild decrease in GFR 60-89 3 Moderate decrease in GFR 30-59 4 Severe decrease in GFR 15-29 5 Kidney failure <15 (or dialysis) 18 [id number] 19 SEE RESULT BELOW Name: DEJAH MAGALLON : [address]: Yris Zuñiga NP Acct: [id number] Unit: [id number] AGE: 20 Location: [facility] Re02/23/16 SEX: F Status: REG REF SPEC: [id number] AVTAR: 02/23/16-[address] [facility] [address]: Yris Zuñiga NP REQ: [id number] RECD: 02/23/16 STATUS: COMP _ SOURCE: URINE SPDESC: ORDERED: Urine Culture COMMENTS: [id number] Urine Source: Random Procedure Result Reported Site Urine Culture Final 02/25/16- 1021 ML No Growth (<1,000 CFU/mL) * ML - MAIN LAB ([facility]) . END OF REPORT * ML=Testing performed at Main Lab DEPARTMENT OF PATHOLOGY, [address] [place] [address] Quinn Castanon M.D. Director [facility] # [id number] 20 SEE RESULT BELOW Name: DEJAH MADDEN : [address]: Yris Zuñiga NP Acct: [id number] Unit: [id number] AGE: 20 Location: [facility] Re02/09/16 SEX: F Status: REG REF SPEC: [id number] AVTAR: 02/09/16-[address] [facility] [address]: Yris Zuñiga NP REQ: [id number] RECD: 02/09/16 STATUS: COMP _ SOURCE: URINE SPDESC: ORDERED: Urine Culture COMMENTS: [id number] Urine Source: Random Procedure Result Reported Site Urine Culture Final 02/11/16- 0816 ML Organism 1 ESCHERICHIA COLI [place] Count >100,000 (Many) CFU/ML 1. ESCHERICHIA COLI M.I.C. RX --------- ------ Ampicillin >=32 R Cefazolin >=64 R Cefepime <=1 S Ceftriaxone <=1 S Ciprofloxacin <=0.25 S Gentamicin <=1 S Levofloxacin <=0.12 S Meropenem <=0.25 S Nitrofurantoin <=16 S Tetracycline >=16 R Pipercillin/Tazobactam <=4 S Trimethoprim/Sulfamethoxazole <=20 S Amoxicillin/Clavulanic Acid 16 I Aztreonam <=1 S Contact the Microbiology Department for any additional antibiotic reporting. * ML - MAIN LAB ([facility]) . END OF REPORT * ML=Testing performed at Main Lab DEPARTMENT OF PATHOLOGY, [address] [place] [address] Quinn Castanon M.D. Director [facility] # [id number] 21 SEE RESULT BELOW Name: DEJAH DE LUNA : [address]: Khushbu Ontiveros MD Acct: [id number] Unit: [id number] AGE: 19 Location: ED Re04/19/15 SEX: F Status: DEP ER SPEC: [id number] AVTAR: 04/19/[address]: Arnoldo YEE REQ: [id number] RECD: 04/19/15 STATUS: RES ABEL DR: Khushbu Zuñiga [employer] _ SOURCE: GILBERT GARCIA [facility]: ORDERED: Culture Stain Procedure Result Reported Site Wound/Misc Gram Stain Final 04/20/15843 ML 2+ Epithelial Cells 3+ Neutrophils 2+ Gram Positive Cocci Wound/Misc Culture PENDING * ML - MAIN LAB ([facility]) . END OF REPORT * ML=Testing performed at Main Lab DEPARTMENT OF PATHOLOGY, [address] [place] [address] Quinn Castanon M.D. Director [facility] # [id number] 22 SEE RESULT BELOW Name: DEJAH DE LUNA : [address]: Khushbu Ontiveros MD Acct: [id number] Unit: [id number] AGE: 19 Location: ED Re04/19/15 SEX: F Status: DEP ER SPEC: [id number] AVTAR: 04/19/15030 [facility] DR: Arnoldo YEE REQ: [id number] RECD: 04/19/15 STATUS: GEOVANY ROMAN DR: hKushbu Zuñiga [employer] _ SOURCE: GILBERT GARCIA SPDESC: ORDERED: MRSA/SA SSTI, Culture Stain COMMENTS: Verbal to [id number] by [id number] at 1108 on 04/20/15. Results read back accurately. Procedure Result Reported Site MRSA/S. aureus SSTI PCR Final 04/20/15- 1109 ML Organism 1 MRSA POSITIVE Organism 2 S.AUREUS POSITIVE Wound/Misc Gram Stain Final 04/20/15- 843 ML 2+ Epithelial Cells 3+ Neutrophils 2+ Gram Positive Cocci Wound/Misc Culture Final 04/21/15- 1144 ML Organism 1 MRSA Quantity 1+ 1. MRSA M.I.C. RX --------- ------ Penicillin >=0.5 R Clindamycin <=0.25 S Erythromycin >=8 R Gentamicin <=0.5 S Linezolid 2 S Nitrofurantoin <=16 S Oxacillin >=4 R * Quinupristin/Dalfopristin <=0.25 S Rifampin <=0.5 S CONTINUED ON NEXT PAGE * ML=Testing performed at Main Lab DEPARTMENT OF PATHOLOGY, [address] [place] [address] Quinn Castanon M.D. Director [facility] # [id number] Patient: DEJAH DE LUNA [id number] (Continued) Specimen: [id number] Collected: 04/19/15 Received: 04/19/15 (Continued) Procedure Result Reported Site Wound/Misc Culture Final (continued) 04/21/15- 1144 1. MRSA (continued) M.I.C. RX --------- ------ Tetracycline <=1 S Doxycycline - Deduced S * Minocycline - Deduced S Trimethoprim/Sulfamethoxazole <=10 S Vancomycin 1 S Imipenem-Deduced R * Ampicillin/Sulbactam-Deduced R Cefazolin-Deduced R * These antibiotics are not available in the [facility] Formulary Contact the Microbiology Department for any additional antibiotic reporting. * ML - MAIN LAB ([facility]) . END OF REPORT * ML=Testing performed at Main Lab DEPARTMENT OF PATHOLOGY, [address] [place] [address] Quinn Castanon M.D. Director [facility] # [id number] 23 SEE RESULT BELOW Name: DEJAH DE LUNA : [address]: Nura Hernadez MD Acct: [id number] Unit: [id number] AGE: 19 Location: ED Re12/17/14 SEX: F Status: DEP ER SPEC: [id number] AVTAR: 12/17/[address] [facility] [address]: Nura Hernadez MD REQ: [id number] RECD: 12/17/14 STATUS: GEOVANY ROMAN DR: Yris Zuñiga [employer] _ SOURCE: GILBERT GARCIA [facility]: ORDERED: Culture Stain Procedure Result Verified Site Wound/Misc Gram Stain Final 12/17/14- 0808 ML 2+ Neutrophils 1+ Epithelial Cells 3+ Gram Positive Cocci Wound/Misc Culture Final 12/19/14- 1315 ML MIXED SKIN JUHI INCLUDING POSSIBLE ANAEROBES. NO FURTHER WORKUP. * ML - MAIN LAB ([facility]) . END OF REPORT * ML=Testing performed at Main Lab DEPARTMENT OF PATHOLOGY, [address] [place] [address] Quinn Castanon M.D. Director [facility] # [id number] 24 Female urine specimens have been self-validated by [facility] and have been granted conditional assay approval by [facility]. 25 Warning: A positive result is not useful for establishing a diagnosis of syphilis. In most situations, such a result may reflect a prior treated infection; a negative result can exclude a diagnosis of syphilis except for incubating or early primary disease. 26 It is recognized that currently available assays for the detection of antibodies to HIV-1 and/or HIV-2 may not detect all infected individuals. HIV antibodies may be undetectable in some stages of the infection and in some clinical conditions. The performance of this assay has not been established for populations of infants or children. Assayed by Chemiluminescence Microparticle Immunoassay on the Siemens Advia Centaur CP. Values obtained with different methods or kits cannot be used interchangeably.The diagnostic specificity of the ADVIA Centaur 1/O/2 Enhanced assay in the low risk population was 99.90% (6052/6058) with a 95% confidence interval of 99.78 to 99.96%. 27 Reference Range and Interpretation: TnI (ng/mL) Interpretation Less Than 0.03 ng/mL Not supportive of diagnosis of [place] 0.03 - 0.50 ng/mL Indeterminate: suggest serial studies if clinically indicated. Greater than 0.5 ng/mL Consistent with diagnosis of [place] 28 Please note: The following may produce a false positive D Dimer test: - Rheumatoid factor greater than 60 IU/ml - Plasma hemoglobin greater than 0.05 gm/dl - Bilirubin greater than 50 mg/dl - Lipids greater than 1000 mg/dl - FDP greater than 20 ug/ml 29 SEE RESULT BELOW Name: DEJAH DE LUNA : [address]: Eligio Main DO Acct: [id number] Unit: [id number] AGE: 19 Location: ED Re09/24/14 SEX: F Status: DEP ER SPEC: [id number] AVTAR: 09/24/14-[address] [facility] [address]: Eligio Main DO REQ: [id number] RECD: 09/24/14 STATUS: GEOVANY ROMAN DR: Indra Kee MD _ SOURCE: URINE SPDESC: ORDERED: Urine Culture Procedure Result Verified Site Urine Culture Final 09/26/14- 821 ML Organism 1 ESCHERICHIA COLI [place] Count 75-100,000 (Many) CFU/ML 1. ESCHERICHIA COLI M.I.C. RX --------- ------ Ampicillin 8 S Cefazolin <=4 S Cefepime <=1 S Ceftriaxone <=1 S Ciprofloxacin <=0.25 S Gentamicin <=1 S Levofloxacin <=0.12 S Meropenem <=0.25 S Nitrofurantoin <=16 S Tetracycline <=1 S Pipercillin/Tazobactam <=4 S Trimethoprim/Sulfamethoxazole <=20 S Amoxicillin/Clavulanic Acid 4 S Aztreonam <=1 S Contact the Microbiology Department for any additional antibiotic reporting. * ML - MAIN LAB ([facility]) . END OF REPORT * ML=Testing performed at Main Lab DEPARTMENT OF PATHOLOGY, [address] [place] [address] Quinn Castanon M.D. Director [facility] # [id number] 30 Anion gap measurement may be of limited value in the presence of any alkalosis, especially in a combined acid base disorder. . 31 Note change in reference range as of 10/04/07. The change was based on recommendations from the [employer]. 32 Please note change in reference range effective 07 . 33 A metabolite of Naproxen, O-desmethylnaproxen, has been shown to interfere with the [place] method for measuring total bilirubin. Samples from patients who have taken Naproxen have shown spurious elevation in total bilirubin levels. Procedures Date CPT Code Description Status 09/24/2014 82390 EKG, at Least 12 Leads w/Interpretation and Report Completed 10/16/2012 03487 Removal-Impacted Cerumen Completed Encounters Type Date Location Provider CPT E/M Dx Office Visit 10/04/2016 2:45p Main Office Yris Zuñiga [employer]PERATIONS CONSULTANT-C 84354 R07.9 Office Visit 06/17/2016 2:45p Main Office Mona Bravo [employer]ICAL OPERATIONS CONSULTANT-C 47859 J02.0 Office Visit 05/26/2016 3:15p Main Office Mona Bravo CLINICAL OPERATIONS CONSULTANT-C 97165 H92.02 Office Visit 04/07/2016 2:30p Main Office Mona Bravo, CLINICAL OPERATIONS CONSULTANT-C 20882 Z33.1 Office Visit 03/31/2016 11:00a Main Office Mona Bravo CLINICAL OPERATIONS CONSULTANT-C 69074 K29.00 Office Visit 03/10/2016 3:45p Main Office Mona Bravo CLINICAL OPERATIONS CONSULTANT-C 82633 N10 R81 Office Visit 02/09/2016 1:30p Main Office Yris Zuñiga CLINICAL OPERATIONS CONSULTANT-C 13721 N10 Office Visit 11/12/2015 4:30p Main Office Mona Bravo CLINICAL OPERATIONS CONSULTANT-C 65604 Z00.00 Z23 Office Visit 11/09/2015 4:45p Main Office Mona Bravo CLINICAL OPERATIONS CONSULTANT-C 01159 N75.0 Office Visit 04/21/2015 4:15p Main Office Mona Bravo, CLINICAL OPERATIONS CONSULTANT-C 42421 N76.4 Office Visit 04/14/2015 4:45p Main Office Shawnti R. Lawrence, CLINICAL OPERATIONS CONSULTANT-C 75957 F33.1 Office Visit 03/17/2015 4:45p Main Office Shawnti R. Lawrence, CLINICAL OPERATIONS CONSULTANT-C 82517 F41.9 M54.5 Office Visit 02/24/2015 3:15p Main Office Shawnti R. Lawrence, CLINICAL OPERATIONS CONSULTANT-C 78528 F41.9 N76.4 Office Visit 02/17/2015 4:30p Main Office Shawnti R. Lawrence, CLINICAL OPERATIONS CONSULTANT-C 38998 N76.4 F41.9 Office Visit 02/02/2015 4:45p Main Office Shawnti R. Lawrence, CLINICAL OPERATIONS CONSULTANT-C 77244 N76.4 Office Visit 12/19/2014 4:15p Main Office Shawnti R. Lawrence, CLINICAL OPERATIONS CONSULTANT-C 84509 L02.214 Office Visit 12/11/2014 4:45p Main Office Shawnti R. Lawrence, CLINICAL OPERATIONS CONSULTANT-C 26889 N92.0 Office Visit 10/14/2014 2:15p Main Office Yris Reyezkelvey, CLINICAL OPERATIONS CONSULTANT-C 05281 590.80 Office Visit 09/30/2014 4:15p Main Office Yris Reyezkelvey, CLINICAL OPERATIONS CONSULTANT-C 20692 590.80 Office Visit 09/24/2014 11:30a Main Office Yris Reyezyoli CLINICAL OPERATIONS CONSULTANT-C 72366 786.50 Office Visit 03/20/2014 11:45a Main Office Re[place]wnti Parish. Lawrence, CLINICAL OPERATIONS CONSULTANT-C 31630 465.9 Office Visit 02/11/2014 3:00p Main Office Shawnti R. Lawrence, CLINICAL OPERATIONS CONSULTANT-C 70340 V25.09 Office Visit 01/20/2014 10:45a Main Office Yris Reyezyoli CLINICAL OPERATIONS CONSULTANT-C 00876 379.90 Office Visit 12/30/2013 4:45p Main Office Shawnti R. Lawrence, CLINICAL OPERATIONS CONSULTANT-C 89384 308.3 Office Visit 12/06/2013 4:30p Main Office Shawnti R. Lawrence, CLINICAL OPERATIONS CONSULTANT-C 12664 308.3 626.2 Office Visit 11/01/2013 4:30p Main Office Mona Bravo [facility]- 90686 V20.2 V05.3 V05.4 Office Visit 03/27/2012 4:30p Main Office Mona Bravo [facility]- 91100 V20.2 626.2 V05.3 V04.89 V03.89 V06.1 Office Visit 09/19/2009 9:45a Main Office Indra Kee M.D. 04874 380.10 Office Visit 04/18/2008 9:15a Main Office Mona LugoMayuri Lawrence [facility] 03046 465.9 Plan of Care 01/02/2017 - Emily Kenney, NPR10.12 Left upper quadrant painNew Xrays: Ultrasound Abdomen, LimitedComments:Due to urine results, abd and CVA tenderness , and hx of kidney infections, ultrasound ordered. Urinepreg negativeConsidered CT, but patient had CT in September of this year. Urine sent for culture. Educated on new/worsening symptoms and when to call/return. Patient stated understanding and agreed to plan.Follow up:Schedule ultrasound as soon as possible
[2017-01-15 01:26] LABS: Manual Entry Verification CAR0052; UR Preg Internal Control QC Line Present; UR Preg Kit Lot# 7010135
[2017-01-15 02:03] LABS: Manual Entry Verification CAR0052; UR Preg Internal Control QC Line Present; UR Preg Kit Lot# 7010135
[2017-01-15 02:15] LABS: Urine Bacteria Absent (Absent); Urine Bilirubin Negative (Negative); Urine Glucose 1+(50 mg/dL) (Negative); Urine Nitrite Negative (Negative)
[2017-01-15 02:47] LABS: Hematocrit 37 % (35-47); Hemoglobin 12.4 g/dl (12.0-16.0); Mean Corpuscular HGB Conc 33 g/dl (31-36); Mean Corpuscular Hemoglobin 29 pg (27-31); Mean Corpuscular Volume 87 fL (80-97); Mean Platelet Volume 8 um3 (7.4-10.4); Red Blood Count 4.25 10^6/ul (4.0-5.4); Red Cell Distribution Width 13 % (10.5-15); White Blood Count 9.1 10^3/ul (3.5-10.8)
[2017-01-15 03:05] LABS: BUN/Creatinine Ratio 15.3 (8-20); EGFR African American 134.2 (>60); EGFR Non-African American 104.3 (>60); Globulin 2.4 g/dL (2-4); Potassium 3.6 mmol/L (3.5-5.0); Total Bilirubin 0.4 mg/dL (0.2-1.0); Total Protein 6.4 g/dL (6.4-8.9)
[2017-01-15 04:31] VITALS: BP 128/85
--- NOTE | 2017-01-15 08:42 | RAD ---
CLINICAL HISTORY: Left flank pain COMPARISON: CTA dated October 04, 2016 TECHNIQUE: Noncontrast CT examination of the abdomen and pelvis from the lung bases through the initial tuberosities. FINDINGS: VISUALIZED LUNG BASES: The visualized lung bases are grossly clear. There is no pleural effusion. ABDOMEN AND PELVIS: Evaluation of the solid organs and vasculature is limited without intravenous contrast. The liver, spleen, pancreas and adrenal glands are grossly normal in appearance. The gallbladder is normal. There is a stable fluid density cyst in the right kidney. Otherwise the kidneys are normal in appearance without focal mass, calcification or signs of hydronephrosis. Evaluation of the gastrointestinal tract is limited without oral contrast. The small and large bowel are not distended.The patient's normal appendix is identified in the right lower quadrant measuring 5 mm in diameter (coronal image 24). There is no gross retroperitoneal or mesenteric lymphadenopathy. The pelvic viscera is normal in appearance. The abdominal aorta and iliac arteries are normal in course and diameter. There is approximately 20 degrees of levoconvex curvature of the lumbar spine with the apex at the L3/L4 intervertebral disc space. IMPRESSION: 1. No renal calculi or signs of hydronephrosis. 2. Normal appendix. 3. Mild degree of lumbar scoliosis.
--- NOTE | 2017-01-20 15:28 | ED ---
Salo Rand Thomas, scribed for Veronica Whiting MD on 01/15/17 at 0155 . Abdominal Pain/Female - HPI Summary HPI Summary: The pt is a 21 y/o F presenting to the ED c/o upper abd pain that has been present for six months but worsened last night. The patient was vomiting blood yesterday. The pain is described as soreness. The pain is rated 3/10. The pain is aggravated by eating and drinking. It is alleviated by nothing. The patient says she has experienced six migraine headaches in the last week with nausea and double vision. She reports chronic chest pain and shortness of breath. In the ED, she complains of left-sided ear ache. Pt denies constipation, fever, chills, dysuria, hematuria, leg swelling, rashes, and bruises. PMHx includes recurrent pyelonephritis, anxiety, and depression. The patient had a CTA Chest/ Abd obtained on 10/04/16. - History of Current Complaint Chief Complaint: EDAbdPain Stated Complaint: ABDOMINAL PAIN Time Seen by Provider: 01/15/17 01:23 Hx Obtained From: Patient Onset/Duration: Lasting Weeks - present for months, Still Present, Worse Since - last night Severity Currently: Mild Pain Intensity: 3 Pain Scale Used: 0-10 Numeric Location: Other - Upper abd Aggravating Factor(s): Food, Other: - Drinking water Alleviating Factor(s): Nothing Associated Signs and Symptoms: Positive: Other: - Abd pain, vomiting blood, migraine headache, nausea, double vision, chronic chest pain, chronic SOB, left- sided ear ache, anxiety, depression; NEGATIVE: constipation, fever, chills, dysuria, hematuria, leg swelling, rashes, bruises Allergies/Adverse Reactions: Allergies Allergy/AdvReac Type Severity Reaction Status Date / Time No Known Allergies Allergy Verified 10/04/16 15:43 PMH/Surg Hx/FS Hx/Imm Hx Previously Healthy: Yes Endocrine/Hematology History: Denies: Hx Diabetes Cardiovascular History: Denies: Hx Coronary Artery Disease, Hx Hypertension Psychiatric History: Reports: Hx Depression - Surgical History Surgery Procedure, Year, and Place: None Infectious Disease History: No Infectious Disease History: Denies: Traveled Outside the [place] in Last 30 Days - Family History Known Family History: Positive: Hypertension, Diabetes - Social History Alcohol Use: Rare Substance Use Type: Reports: None Hx Tobacco Use: Yes Smoking Status (MU): Light Every Day Tobacco Smoker Review of Systems Negative: Fever, Chills Positive: Diplopia Positive: Ear Ache - L-sided Positive: Chest Pain - chronic Positive: Shortness Of Breath - chronic Positive: Abdominal Pain, Nausea, Other - Constipation, vomiting blood; NEGATIVE : constipation Negative: dysuria, hematuria Negative: Edema Negative: Rash, Bruising Positive: Headache - migraine Positive: Anxious, Depressed All Other Systems Reviewed And Are Negative: No Physical Exam - Summary Physical Exam Summary: Appearance: Alert, conversive, nontoxic appearing Skin: Warm, dry, no mottling, no rashes, no contusions HEENT: EOMI, PERRL, moist mucous membranes Neck: No masses on the neck, supple Respiratory: Clear to auscultation, breath sounds present, no rales, no rhonchi , no wheezes Cardiovascular: RRR, pulses are symmetrical in both lower and upper extremities Abdomen: Soft, non-tender Bowel Sounds: Present Musculoskeletal: No CVA tenderness, no obvious deformity, moving all extremities in a grossly normal manner Neurological: A&Ox3, CN II-XII Intact, moving all extremities symmetrically Psychiatric: Normal affect and mood Triage Information Reviewed: Yes Vital Signs On Initial Exam: Initial Vitals Temp Pulse Resp BP Pulse Ox 97.5 F 102 16 119/81 99 01/14/17 22:36 01/14/17 22:36 01/14/17 22:36 01/14/17 22:36 01/14/17 22:36 Vital Signs Reviewed: Yes - [place] Coma Scale Coma Scale Total: 15 Diagnostics - Vital Signs Vital Signs Temp Pulse Resp BP Pulse Ox 01/15/17 01:20 90 98 01/15/17 01:17 140/82 01/14/17 22:36 97.5 F 102 16 119/81 99 - Laboratory Lab Results: Lab Results 01/15/17 Range/Units 01:15 Urine Test Negative (Negative) Result Diagrams: 01/15/17 02:34 01/15/17 02:34 Lab Statement: Any lab studies that have been ordered have been reviewed, and results considered in the medical decision making process. - CT CT Abd/Pel CT Interpretation: No Acute Changes - No localizing signs for acute pathology. Small amout of pelvic free fluid may be physiologic. CT Interpretation Completed By: Radiologist Abdominal Pain Fem Course/Dx - Course Course Of Treatment: I informed the patient that her labs are normal, her CT is normal, and that she should follow up with GI. - Diagnoses Provider Diagnoses: Chronic abdominal pain Discharge - Discharge Plan Condition: Stable Disposition: HOME Patient Education Materials: Chronic Abdominal Pain (ED) Referrals: Mona Bravo NP [Primary Care Provider] - Additional Instructions: follow up with your primary care physician. return if worse or any new symptoms. It is important that you follow up with your primary care physician. Discuss the need for a referral to GI for further evaluation. Take tylenol and motrin for pain. The documentation as recorded by the Salo downing Thomas accurately reflects the service I personally performed and the decisions made by me, Veronica Whiting MD.
== END 2017-01-15 04:32 | disposition home or self-care (01) ==
LOC: ED 22:31
DX: H92.02 Otalgia, left ear (principal)
CPT/HCPCS: 36415; 74176; 80053; 81003; 81015; 81025; 83605; 83690; 85025; 99282

== ENCOUNTER 2017-06-16 20:10 | Emergency (ER) | payer OTHER ==
[2017-06-16 21:09] LABS: Urine Appearance Cloudy; Urine Blood Negative (Negative); Urine Color Yellow; Urine Ketones Negative (Negative); Urine Protein Negative (Negative); Urine Specific Gravity 1.024 (1.010-1.030); Urine Urobilinogen Negative (Negative)
[2017-06-16] MEDS ORDERED: Metoclopramide IV* 5 MG/ML 2 ML VIAL IV SLOW PU ONE (21:47)
[2017-06-16] MEDS ORDERED: Morphine VIAL* 4 MG/ML VIAL (1 ml vial) IV ONE (21:47)
[2017-06-16 22:04] LABS: ABS Basophils 0 10^3/ul (0-0.2); ABS Eosinophils 0.1 10^3/ul (0-0.6); ABS Lymphocytes 2.3 10^3/ul (1.0-4.8); ABS Monocytes 0.5 10^3/ul (0-0.8); ABS Neutrophils 4.7 10^3/ul (1.5-7.7); ABS Nucleated RBC 0 10^3/ul; Eosinophil % 1.3 % (0-6); Hematocrit 35 % (35-47); Hemoglobin 11.7 g/dl (12.0-16.0); Lymphocyte % 30.5 % (25-47); Mean Corpuscular HGB Conc 33 g/dl (31-36); Mean Corpuscular Hemoglobin 29 pg (27-31); Mean Corpuscular Volume 88 fL (80-97); Mean Platelet Volume 7.8 um3 (7.4-10.4); Nucleated Red Blood Cells % 0; Platelet Count 258 10^3/ul (150-450); Red Blood Count 3.99 10^6/ul (4.0-5.4); Red Cell Distribution Width 14 % (10.5-15); White Blood Count 7.7 10^3/ul (3.5-10.8)
[2017-06-16 22:22] LABS: EGFR Non-African American 131.3 (>60)
[2017-06-16] MEDS ORDERED: Nitrofurantoin Macrocrystals* 100 MG CAP PO ONE (23:13)
--- NOTE | 2017-06-16 23:24 | ED ---
Dion Rand Nikita, scribed for Jose Wyman MD on 06/16/17 at 2133 . Abdominal Pain/Female - HPI Summary HPI Summary: This patient is a 21 year old F presenting to ED with a chief complaint of severe flank pain since yesterday. The patient rates the pain 7/10 in severity. Symptoms aggravated by nothing. Symptoms alleviated by Tylenol today (took 1). Patient reports painful L lymph node, fever, and chills. Patient denies N/V/D, and vaginal bleeding. The patient reports she has had multiple kidney infections in the past so she was worried. Patient is 19 weeks . - History of Current Complaint Chief Complaint: EDFlankPain Stated Complaint: FLANK/THROAT PAIN Time Seen by Provider: 06/16/17 21:15 Hx Obtained From: Patient Onset/Duration: Sudden Onset, Lasting Days, Still Present Timing: Constant Severity Initially: Moderate Severity Currently: Moderate Pain Intensity: 7 Pain Scale Used: 0-10 Numeric Location: Flank - L flank Aggravating Factor(s): Nothing Alleviating Factor(s): Other: - tylenol Associated Signs and Symptoms: Positive: Other: - Patient reports painful L lymph node, fever, and chills. Patient denies N/V/D, and vaginal bleeding. Allergies/Adverse Reactions: Allergies Allergy/AdvReac Type Severity Reaction Status Date / Time No Known Allergies Allergy Verified 10/04/16 15:43 PMH/Surg Hx/FS Hx/Imm Hx Endocrine/Hematology History: Denies: Hx Diabetes Cardiovascular History: Denies: Hx Coronary Artery Disease, Hx Hypertension Psychiatric History: Reports: Hx Depression - Surgical History Surgery Procedure, Year, and Place: None Infectious Disease History: No Infectious Disease History: Denies: Traveled Outside the [place] in Last 30 Days - Family History Known Family History: Positive: Hypertension, Diabetes - Social History Alcohol Use: Rare Substance Use Type: Reports: None Hx Tobacco Use: Yes Smoking Status (MU): Light Every Day Tobacco Smoker Review of Systems Positive: Fever, Chills Positive: Other - painful L lymph node Negative: Vomiting, Diarrhea, Nausea Positive: other - denies vaginal bleeding All Other Systems Reviewed And Are Negative: Yes Physical Exam - Summary Physical Exam Summary: VITAL SIGNS: Reviewed. GENERAL: ~Patient is a well-developed and nourished FEMALE who is lying comfortable in the stretcher. Patient is not in any acute respiratory distress. HEAD AND FACE: No signs of trauma. No ecchymosis, hematomas or skull depressions. No sinus tenderness. EYES: PERRLA, EOMI x 2, No injected conjunctiva, no nystagmus. EARS: Hearing grossly intact. Ear canals and tympanic membranes are within normal limits. MOUTH: Oropharynx within normal limits. NECK: Supple, trachea is midline, Tender L cervical adenopathy, no JVD, no carotid bruit, no c-spine tenderness, neck with full ROM. CHEST: Symmetric, no tenderness at palpation LUNGS: Clear to auscultation bilaterally. No wheezing or crackles. CVS: Regular rate and rhythm, S1 and S2 present, no murmurs or gallops appreciated. ABDOMEN: Soft. No signs of distention. No rebound, no guarding, and no masses palpated. Bowel sounds are normal. L CVA tenderness and LLQ tenderness. EXTREMITIES: FROM in all major joints, no edema, no cyanosis or clubbing. NEURO: Alert and oriented x 3. No acute neurological deficits. Speech is normal and follows commands. SKIN: Dry and warm Triage Information Reviewed: Yes Vital Signs On Initial Exam: Initial Vitals Temp Pulse Resp BP Pulse Ox 97.5 F 83 16 115/71 99 06/16/17 20:33 06/16/17 20:33 06/16/17 20:33 06/16/17 20:33 06/16/17 20:33 Vital Signs Reviewed: Yes Diagnostics - Vital Signs Vital Signs Temp Pulse Resp BP Pulse Ox 06/16/17 20:33 97.5 F 83 16 115/71 99 - Laboratory Lab Results: Lab Results 06/16/17 Range/Units 20:55 Urine Color Yellow Urine Appearance Cloudy Urine pH 6.0 (5-9) Ur Specific [place] 1.024 (1.010-1.030) Urine Protein Negative (Negative) Urine Ketones Negative (Negative) Urine Blood Negative (Negative) Urine Nitrate Negative (Negative) Urine Bilirubin Negative (Negative) Urine Urobilinogen Negative (Negative) Ur Leukocyte Esterase 1+ A (Negative) Urine WBC (Auto) Trace(0-5/hpf) (Absent) Urine RBC (Auto) Absent (Absent) Ur Squamous Epith Cells Present A (Absent) Urine Bacteria Absent (Absent) Urine Glucose 1+(50 mg/dl) A (Negative) Result Diagrams: 06/16/17 21:54 06/16/17 21:54 Lab Statement: Any lab studies that have been ordered have been reviewed, and results considered in the medical decision making process. - Ultrasound No standard instances Ultrasound Interpretation Completed By: Radiologist - Renal US reveals right kidney measures 12.4cm x 5.7cm x 4.9 cm. No right hydronephrosis or right renal stone. There is a 3.5 cm right renal cyst. Left kidney measures 12.3cm x 5.7cm x 5.6cm. There is slight fullness of the left renal collecting system. No major hydronephrosis. However, in view of the fact that the patient has left flank pain, further investigation to determine if there is ureteral obstruction more distally is recommended. ED physician has reviewed this imaging report. Re-Evaluation - Re-Evaluation First Eval Re-Evaluation Time: 23:17 Comment: Discussed discharge plan with the patient. Abdominal Pain Fem Course/Dx - Course Course Of Treatment: This patient is a 21 year old F presenting to ED with a chief complaint of severe flank pain since yesterday. Renal US reveals right kidney measures 12.4cm x 5.7cm x 4.9 cm. No right hydronephrosis or right renal stone. There is a 3.5 cm right renal cyst. Left kidney measures 12.3cm x 5.7cm x 5.6cm. There is slight fullness of the left renal collecting system. No major hydronephrosis. However, in view of the fact that the patient has left flank pain, further investigation to determine if there is ureteral obstruction more distally is recommended. In the ED course, the patient was given Reglan, morphine, and fluids. The patient will be discharged. The patient is agreeable with this plan. - Diagnoses Differential Diagnosis: Positive: Urinary Tract Infection Provider Diagnoses: UTI (urinary tract infection) Discharge - Sign-Out/Discharge Documenting (check all that apply): Discharge/Admit/Transfer - Discharge Plan Condition: Stable Disposition: HOME Patient Education Materials: Urinary Tract Infection in (ED) Referrals: Mona Bravo NP [Primary Care Provider] - (Please follow up with your OB doctor on Monday06/19/2017.) Additional Instructions: RETURN TO EMERGENCY DEPARTMENT FOR ANY NEW OR WORSENING SYMPTOMS. PLEASE FOLLOW UP WITH YOUR OB DOCTOR ON Monday06/19/2017. The documentation as recorded by the Dion downing Nikita accurately reflects the service I personally performed and the decisions made by , Jose Wyman MD.
[2017-06-17 00:11] VITALS: BP 120/69
--- NOTE | 2017-06-17 07:04 | RAD ---
INDICATION: Abdominal pain. COMPARISON: Comparison is made with a prior CT of the abdomen and pelvis from January 15, 2017. Correlation is also made with a prior renal ultrasound from October 10, 2014. TECHNIQUE: Multiple real-time images of the kidneys were obtained. FINDINGS: The kidneys are normal in size shape and echogenicity. The right kidney measured 12.4 x 5.7 x 4.9 cm and the left kidney measured 12.3 x 5.5 x 5.7 cm. There is a simple cyst present in the upper pole of the right kidney measuring 3.5 x 3.3 x 3.1 cm. No hydronephrosis is seen. IMPRESSION: RIGHT RENAL CYST, NO EVIDENCE FOR HYDRONEPHROSIS.
== END 2017-06-17 00:10 | disposition home or self-care (01) ==
LOC: ED 20:10
DX: N39.0 Urinary tract infection, site not specified (principal); R10.84 Generalized abdominal pain; F17.210 Nicotine dependence, cigarettes, uncomplicated
CPT/HCPCS: 36415; 76775; 80053; 81003; 81015; 83690; 85025; 86140; 87086; 96374; 96375; 99283; A9270-GY; J2270; J2765

== ENCOUNTER 2017-07-20 23:54 | Emergency (ER) | payer OTHER ==
[2017-07-21 00:45] LABS: ABS Basophils 0 10^3/ul (0-0.2); ABS Eosinophils 0.2 10^3/ul (0-0.6); ABS Lymphocytes 2.6 10^3/ul (1.0-4.8); ABS Monocytes 0.7 10^3/ul (0-0.8); ABS Neutrophils 6.1 10^3/ul (1.5-7.7); ABS Nucleated RBC 0 10^3/ul; Eosinophil % 1.8 % (0-6); Hematocrit 32 % (35-47); Lymphocyte % 27.5 % (25-47); Mean Corpuscular HGB Conc 34 g/dl (31-36); Mean Corpuscular Hemoglobin 30 pg (27-31); Mean Corpuscular Volume 87 fL (80-97); Nucleated Red Blood Cells % 0.2; Platelet Count 246 10^3/ul (150-450); Red Blood Count 3.73 10^6/ul (4.0-5.4); Red Cell Distribution Width 14 % (10.5-15); White Blood Count 9.6 10^3/ul (3.5-10.8)
[2017-07-21 00:56] LABS: EGFR Non-African American 143.9 (>60)
[2017-07-21 01:25] LABS: Urine Appearance Cloudy; Urine Blood Negative (Negative); Urine Color Yellow; Urine Ketones Negative (Negative); Urine Protein Negative (Negative); Urine Specific Gravity 1.017 (1.010-1.030); Urine Urobilinogen Negative (Negative)
[2017-07-21 03:22] VITALS: BP 149/84
--- NOTE | 2017-07-21 03:42 | ED ---
Mina Rand Angela scribruben for Jose Wyman MD on 07/21/17 at 0026 . Psychiatric Complaint - HPI Summary HPI Summary: This pt is a 22 y/o female, currently 24 weeks A0, presenting to [facility] for depression and SI for weeks now. Pt reports she has been having SI thoughts with a plan to cut herself. She states she has had SI plans and that's why she decided to come to the ED. She denies any recent stressors. Pt presents to the ED with her fiance and father. Pt is not on any medications. She has not had any prior psychiatric hospitalizations. Her OB is Dr. Bedoya. - History Of Current Complaint Hx Obtained From: Patient ?: Yes - 24 weeks Onset/Duration: Lasting Weeks, Still Present Timing: Weeks Severity Currently: Moderate Character: Depressed Aggravating Factor(s): Nothing Alleviating Factor(s): Nothing Associated Signs And Symptoms: Positive: Negative Has Suicidal: Reports: Thoughts, With A Plan Has Homicidal: Denies: Thoughts, With A Plan Recent Stressor(s): none - Allergies/Home Medications Allergies/Adverse Reactions: Allergies Allergy/AdvReac Type Severity Reaction Status Date / Time No Known Allergies Allergy Verified 10/04/16 15:43 Home Medications: Home Medications NK [No Home Medications Reported] 07/21/17 [History Confirmed 07/21/17] PMH/Surg Hx/FS Hx/Imm Hx Endocrine/Hematology History: Denies: Hx Diabetes Cardiovascular History: Denies: Hx Coronary Artery Disease, Hx Hypertension Psychiatric History: Reports: Hx Depression - Surgical History Surgery Procedure, Year, and Place: None Infectious Disease History: No Infectious Disease History: Denies: Traveled Outside the [place] in Last 30 Days - Family History Known Family History: Positive: Hypertension, Diabetes - Social History Alcohol Use: Rare Substance Use Type: Reports: None Hx Tobacco Use: Yes Smoking Status (MU): Light Every Day Tobacco Smoker Review of Systems Negative: Fever, Chills Eyes: Negative ENT: Negative Negative: Abdominal Pain Psychological: Other - SI thoughts and plan Positive: Depressed. Negative: Other - HI thoughts/plan All Other Systems Reviewed And Are Negative: Yes Physical Exam - Summary Physical Exam Summary: VITAL SIGNS: Reviewed. GENERAL: Patient is a well-developed and nourished female who is lying comfortable in the stretcher. Patient is not in any acute respiratory distress. HEAD AND FACE: No signs of trauma. No ecchymosis, hematomas or skull depressions. No sinus tenderness. EYES: PERRLA, EOMI x 2, No injected conjunctiva, no nystagmus. EARS: Hearing grossly intact. Ear canals and tympanic membranes are within normal limits. MOUTH: Oropharynx within normal limits. NECK: Supple, trachea is midline, no adenopathy, no JVD, no carotid bruit, no c- spine tenderness, neck with full ROM. CHEST: Symmetric, no tenderness at palpation LUNGS: Clear to auscultation bilaterally. No wheezing or crackles. CVS: Regular rate and rhythm, S1 and S2 present, no murmurs or gallops appreciated. ABDOMEN: Soft, non-tender. No signs of distention. No rebound no guarding, and no masses palpated. Bowel sounds are normal. Fundal level is at 24 weeks. EXTREMITIES: FROM in all major joints, no edema, no cyanosis or clubbing. NEURO: Alert and oriented x 3. No acute neurological deficits. Speech is normal and follows commands. SKIN: Dry and warm PSYCH: pt has a low tone voice. Triage Information Reviewed: Yes Vital Signs On Initial Exam: Initial Vitals Temp Pulse Resp BP Pulse Ox 97.8 F 85 16 129/85 100 07/20/17 23:57 07/20/17 23:57 07/20/17 23:57 07/20/17 23:57 07/20/17 23:57 Vital Signs Reviewed: Yes Diagnostics - Vital Signs Vital Signs Temp Pulse Resp BP Pulse Ox 07/20/17 23:57 97.8 F 85 16 129/85 100 - Laboratory Result Diagrams: 07/21/17 00:26 07/21/17 00:26 Lab Statement: Any lab studies that have been ordered have been reviewed, and results considered in the medical decision making process. Course/Dx - Course Assessment/Plan: Pt is a 22 y/o female, currently 24 weeks A0, who presents with depression and SI for weeks now. Pt reports she has been having SI thoughts with a plan to cut herself. Pt is medically cleared at 01:43. She is awaiting a mental health evaluation. Pt was evaluated by the mental health supervisor doping and her case was reviewed by Dr. Plascencia, psychiatrist. Pt was offered voluntary admission but she declines. Dr. Plascencia recommends for the pt to be discharged home with outpatient follow up at [facility]. Pt will be discharged home with diagnosis of unspecified depression. - Differential Dx/Clinical Impression Provider Diagnosis: Depression Discharge - Sign-Out/Discharge Documenting (check all that apply): Discharge/Admit/Transfer - Discharge - Discharge Plan Condition: Stable Disposition: HOME Patient Education Materials: Depression (ED) Referrals: Mona Bravo, CLINICAL ASSISTANT [Primary Care Provider] - The documentation as recorded by the Mina downing Angela accurately reflects the service I personally performed and the decisions made by , Jose Wyman MD.
== END 2017-07-21 03:22 | disposition home or self-care (01) ==
LOC: ED 23:54
DX: O99.342 Other mental disorders complicating pregnancy, second trimester (principal); F32.9 Major depressive disorder, single episode, unspecified; O99.332 Smoking (tobacco) complicating pregnancy, second trimester; F17.200 Nicotine dependence, unspecified, uncomplicated; Z3A.24 24 weeks gestation of pregnancy
CPT/HCPCS: 36415; 80053; 80307; 80320; 80329; 81003; 84443; 85025; 99284; G0480

== ENCOUNTER 2018-09-04 08:12 | Emergency (ER) | payer OTHER ==
[2018-09-04] MEDS ORDERED: Albuterol HFA INHALER* 8 gm MDI INH ONE (08:33)
[2018-09-04] MEDS ORDERED: Ibuprofen TAB* 600 MG PO ONE (08:34)
[2018-09-04 08:47] LABS: ABS Lymphocytes 1.1 10^3/ul (1.0-4.8); ABS Monocytes 0.4 10^3/ul (0-0.8); ABS Neutrophils 3.7 10^3/ul (1.5-7.7); Eosinophil % 0.6 %; Hematocrit 42 % (35-47); Hemoglobin 14.4 g/dL (12.0-16.0); Lymphocyte % 21.8 %; Mean Corpuscular HGB Conc 34 g/dL (31-36); Mean Corpuscular Hemoglobin 28 pg (27-31); Mean Corpuscular Volume 81 fL (80-97); Mean Platelet Volume 8.3 fL (7.4-10.4); Nucleated Red Blood Cells % 0.1; Platelet Count 279 10^3/uL (150-450); Red Blood Count 5.18 10^6 /uL (3.70-4.87); Red Cell Distribution Width 15 % (10-15); White Blood Count 5.3 10^3/uL (3.5-10.8)
[2018-09-04 08:59] LABS: INR 1.02 (0.82-1.09)
[2018-09-04 09:06] LABS: Albumin 4.4 g/dL (3.2-5.2); Albumin/Globulin Ratio 1.6 (1-3); Calcium 9.9 mg/dL (8.6-10.3); EGFR Non-African American 97.5 (>60); Globulin 2.8 g/dL (2-4); Potassium 3.8 mmol/L (3.5-5.0); Total Bilirubin 0.8 mg/dL (0.2-1.0); Total Protein 7.2 g/dL (6.4-8.9)
--- NOTE | 2018-09-04 09:30 | ED ---
HPI Chest Pain - HPI Summary HPI Summary: Patient is a 23-year-old female who is otherwise healthy presenting to the ED with shortness of breath and left-sided rib/chest pain radiating to the left upper back. Symptoms are aggravated with deep breaths and better with rest. Denies history of asthma. Patient is a 3 cigarette per day smoker. She does endorse a history of OCP use. Denies any recent travel. Patient has never had anything like this in the past. Sxs are not aggravated with ambulation or exertion. - History of Current Complaint Chief Complaint: EDShortnessOfBreath Time Seen by Provider: 09/04/18 08:21 Hx Obtained From: Patient Onset/Duration: Started Hours Ago Timing: Constant Initial Severity: Moderate Current Severity: Moderate Pain Intensity: 6 Pain Scale Used: 0-10 Numeric Chest Pain Location: Left Lateral Chest Pain Radiates: Yes Chest Pain Radiates To:: Back - left upper back Character: Burning, Dull/Aching Aggravating Factor(s): Deep Breaths Alleviating Factor(s): Rest, Bronchodilators Associated Signs and Symptoms: Positive: Chest Pain. Negative: Vision Changes, Anxiety, Recent Stress, Chills, Lightheadedness, Diaphoresis, Palpitations, Productive Cough, Nonproductive Cough, Vomiting, URI - Risk Factors Pulmonary Embolism Risk Factors: Oral Contraceptives, Smoking TAD Risk Factors: Negative - Allergy/Home Medications Allergies/Adverse Reactions: Allergies Allergy/AdvReac Type Severity Reaction Status Date / Time No Known Allergies Allergy Verified 10/04/16 15:43 PMH/Surg Hx/FS Hx/Imm Hx Previously Healthy: Yes Endocrine/Hematology History: Denies: Hx Diabetes Cardiovascular History: Denies: Hx Coronary Artery Disease, Hx Hypertension Psychiatric History: Reports: Hx Depression Denies: Hx Eating Disorder - Surgical History Surgery Procedure, Year, and Place: None Infectious Disease History: No Infectious Disease History: Denies: Traveled Outside the [place] in Last 30 Days - Family History Known Family History: Positive: Hypertension, Diabetes - Social History Occupation: Unemployed Lives: With Family Alcohol Use: Rare Hx Substance Use: Yes Substance Use Type: Reports: Marijuana Substance Use Comment - Amount & Last Used: nightly Hx Tobacco Use: Yes Smoking Status (MU): Light Every Day Tobacco Smoker Review of Systems Constitutional: Negative Negative: Fever, Chills, Fatigue, Skin Diaphoresis Positive: Chest Pain. Negative: Palpitations Negative: Shortness Of Breath, Cough Negative: Abdominal Pain, Vomiting, Diarrhea, Nausea Genitourinary: Negative Positive: no symptoms reported, see HPI Negative: Arthralgia, Myalgia Neurological: Negative All Other Systems Reviewed And Are Negative: Yes Physical Exam Triage Information Reviewed: Yes Vital Signs On Initial Exam: Initial Vitals Temp Pulse Resp BP Pulse Ox 98.1 F 98 24 138/92 98 09/04/18 08:14 09/04/18 08:14 09/04/18 08:14 09/04/18 08:14 09/04/18 08:14 Vital Signs Reviewed: Yes Appearance: Positive: Well-Appearing, Well-Nourished Skin: Positive: Warm, Skin Color Reflects Adequate Perfusion Head/Face: Positive: Normal Head/Face Inspection Eyes: Positive: EOMI, Conjunctiva Clear Neck: Positive: Supple, No Lymphadenopathy Respiratory/Lung Sounds: Positive: Clear to Auscultation, Breath Sounds Present. Negative: Rales, Rhonchi, Wheezes, Unable to speak in full sentences, Fatigue Cardiovascular: Positive: RRR, Pulses are Symmetrical in both Upper and Lower Extremities. Negative: Tachycardia Musculoskeletal: Positive: Normal, Strength/ROM Intact Neurological: Positive: Sensory/Motor Intact, Alert, Oriented to Person Place, Time, Speech Normal Psychiatric: Positive: Normal, Affect/Mood Appropriate AVPU Assessment: Alert Diagnostics - Vital Signs Vital Signs Temp Pulse Resp BP Pulse Ox 09/04/18 08:27 82 13 115/85 100 09/04/18 08:23 90 100 09/04/18 08:14 98.1 F 98 24 138/92 98 - Laboratory Lab Results: Lab Results 09/04/18 09/04/18 09/04/18 Range/Units 08:29 08:29 08:29 WBC 5.3 (3.5-10.8) 10^3/uL RBC 5.18 H (3.70-4.87) 10^6 /uL Hgb 14.4 (12.0-16.0) g/dL Hct 42 (35-47) % MCV 81 (80-97) fL MCH 28 (27-31) pg MCHC 34 (31-36) g/dL RDW 15 (10-15) % Plt Count 279 (150-450) 10^3/uL MPV 8.3 (7.4-10.4) fL Neut % (Auto) 70.1 % Lymph % (Auto) 21.8 % [place] % (Auto) 7.3 % Eos % (Auto) 0.6 % Baso % (Auto) 0.2 % Absolute Neuts (auto) 3.7 (1.5-7.7) 10^3/ul Absolute Lymphs (auto) 1.1 (1.0-4.8) 10^3/ul Absolute Monos (auto) 0.4 (0-0.8) 10^3/ul Absolute Eos (auto) 0.0 (0-0.6) 10^3/ul Absolute Basos (auto) 0.0 (0-0.2) 10^3/ul Absolute Nucleated RBC 0.0 10^3/ul Nucleated RBC % 0.1 INR (Anticoag Therapy) 1.02 (0.82-1.09) D-Dimer, Quantitative < 200 (Less Than 230) ng/mL Sodium 138 (135-145) mmol/L Potassium 3.8 (3.5-5.0) mmol/L Chloride 108 (101-111) mmol/L Carbon Dioxide 20 L (22-32) mmol/L Anion Gap 10 (2-11) mmol/L BUN 12 (6-24) mg/dL Creatinine 0.75 (0.51-0.95) mg/dL Est GFR ( Amer) 118.0 (>60) Est GFR (Non-Af Amer) 97.5 (>60) BUN/Creatinine Ratio 16.0 (8-20) Glucose 101 H (70-100) mg/dL Calcium 9.9 (8.6-10.3) mg/dL Total Bilirubin 0.80 (0.2-1.0) mg/dL AST 27 (13-39) U/L ALT 32 (7-52) U/L Alkaline Phosphatase 122 H (34-104) U/L Troponin I 0.00 (<0.04) ng/mL Total Protein 7.2 (6.4-8.9) g/dL Albumin 4.4 (3.2-5.2) g/dL Globulin 2.8 (2-4) g/dL Albumin/Globulin Ratio 1.6 (1-3) Result Diagrams: 09/04/18 08:29 09/04/18 08:29 Lab Statement: Any lab studies that have been ordered have been reviewed, and results considered in the medical decision making process. Re-Evaluation - Re-Evaluation First Eval Change: Improved - sxs improved following 600mg ibuprofen Second Eval Change: Improved - pt continues to improve - discussed results and return precautions with pt. ok for discharge - states only symptomatic when she sits up fast or "thinks about it." Chest Pain Course/Dx - Course Course Of Treatment: Patient is a 23-year-old female who is otherwise healthy presenting to the ED with shortness of breath and left-sided rib/chest pain radiating to the left upper back. Sxs began suddenly last night and have remained constant. Symptoms are aggravated with deep breaths and better with rest. Denies history of asthma. Denies drug or alcohol use. Patient is a 3 cigarette per day smoker. She does endorse a history of OCP use. Denies any recent travel. Patient has never had anything like this in the past. Sxs are not aggravated with ambulation or exertion. On physical examination, patient is tachypnic, however is not tachycardic, patient remained afebrile and other vital signs are stable. Labs obtained which showed normal white count and a negative d-dimer. Troponin 0.00. An EKG was obtained which shows a normal sinus rhythm. Patient is given ibuprofen 600 mg and an albuterol inhaler while in the ED. Lungs CTA, RRR. No cough. No evidence of pericardial friction rub. Sxs not worse or better with positioning. A chest x-ray was obtained which has no acute cardio pulmonary findings including evidence of a pericarditis. Patient is feeling improved after medications. As there is no other evidence of a PE, pericarditis, CAD or PNA, and as pain tends to be pleuritic only with deep breaths, she will be dx with pleurisy and is given encouragement of high dose NSAIDS of 800mg Ibuprofen four times daily x 4 days. She understands to return to the ED for any worsening or changing symptoms. No indication for abx. - Chest Pain Differential Diagnosis/HQI/PQRI: Angina, Chest Wall, Other: - chest pain, costochondritis, inflammation - Diagnoses Provider Diagnoses: Pleurisy Discharge - Sign-Out/Discharge Documenting (check all that apply): Patient Departure Patient Received Moderate/Deep Sedation with Procedure: No - Discharge Plan Condition: Stable Disposition: HOME Prescriptions: predniSONE TAB* [Deltasone TAB*] 50 mg PO DAILY #5 tab MDD 1 Patient Education Materials: Pleurisy (ED) Referrals: Mona Bravo [employer] RESEARCH MANAGER [Primary Care Provider] - Additional Instructions: Please return to the ED for worsening symptoms Ibuprofen 800mg four times daily x 4 days Albuterol inhaler as needed for any shortness of breath - Billing Disposition and Condition Condition: STABLE Disposition: Home
[2018-09-04 09:43] VITALS: BP 112/70
== END 2018-09-04 10:09 | disposition home or self-care (01) ==
LOC: ED 08:12
DX: R09.1 Pleurisy (principal); F17.210 Nicotine dependence, cigarettes, uncomplicated
CPT/HCPCS: 36415; 71046; 80053; 84484; 85025; 85379; 85610; 93005; 99282; A9270-GY